=== PATIENT | female | born 1960 | race Caucasian/White ===

== ENCOUNTER 2020-09-07 12:06 | Inpatient (IN) | payer BC ==
[2020-09-07] MEDS ORDERED: SODIUM CHLORIDE 0.9% 1000 ML INFUS.BAG IV ONE (12:27)
[2020-09-07] MEDS ORDERED: ACETAMINOPHEN 1000 MG/100 ML VIAL (NON FORMULARY) IVPB ONE (13:00)
[2020-09-07] MEDS ORDERED: ACETAMINOPHEN INJECTION 100 ML IVPB ONE (13:06)
[2020-09-07 13:18] LABS: BILIRUBIN,TOTAL 0.8 mg/dl (0.2-1); CALCIUM 7.7 mg/dl (8.5-10); CREATININE 0.6 mg/dl (0.55-1.3); MAGNESIUM 1.9 mg/dL (1.8-2.4); POTASSIUM 3.8 mmol/L (3.5-5.1); TOT PROT 6.6 g/dl (6.4-8.2)
[2020-09-07 13:38] LABS: BASO % 2.2 % (0-2.0); EOS % 1.4 % (0-4.5); HEMATOCRIT 37.1 % (32.4-45.2); HEMOGLOBIN 12.3 GM/dl (10.7-15.3); LYMPH % 18.6 % (8-40); MCH 30.3 pg (25.7-33.7); MCHC 33.2 g/dl (32.0-36.0); MEAN CELL VOLUME 91.2 fl (80-96); MEAN PLT VOLUME 8.5 fl (7.5-11.1); MONO % 7.9 % (3.8-10.2); NEUT % 69.9 % (42.8-82.8); PLATELET COUNT 200 K/MM3 (134-434); RBC 4.07 M/mm3 (3.60-5.2); RDW 13.5 % (11.6-15.6); WHITE BLOOD COUNT 5.9 K/mm3 (4.0-10.8)
[2020-09-07] MEDS ORDERED: MAG HYDROX/AL HYDROX/SIMETH 30 ML UNIT-DOSE CUP PO ONE (13:42)
[2020-09-07] MEDS ORDERED: MAG HYDROX/AL HYDROX/SIMETH 30 ML UNIT-DOSE CUP ONE (13:47)
[2020-09-07 14:35] LABS: EPITHELIAL CELLS RARE /hpf
[2020-09-07] MEDS ORDERED: ASPIRIN 81 MG CHEWABLE TABLETS PO ONE (18:14)
[2020-09-07] MEDS ORDERED: ASPIRIN 81 MG CHEWABLE TABLETS ONE (18:22)
[2020-09-07] MEDS ORDERED: SODIUM CHLORIDE 1,000 ML IV SCH (21:45)
[2020-09-07] MEDS: ENOXAPARIN NA (PORCINE) 40 MG/0.4 ML DISP.SYRIN SQ SCH (22:22)
[2020-09-07 23:55] VITALS: BMI 22.6
[2020-09-08] MEDS ORDERED: LEVOTHYROXINE NA 150 MCG TABLET PO SCH (06:00)
[2020-09-08] MEDS ORDERED: LEVOTHYROXINE NA 88 MCG TABLET (FP) ONE (06:17)
[2020-09-08] MEDS ORDERED: LEVOTHYROXINE NA 100 MCG TABLET (FP) ONE (06:17)
[2020-09-08] MEDS: LEVOTHYROXINE 100 MCG, LEVOTHYROXINE 88 MCG PO SCH (06:36)
[2020-09-08 08:35] LABS: BASO % 2.1 % (0-2.0); EOS % 2.2 % (0-4.5); HEMATOCRIT 34.6 % (32.4-45.2); HEMOGLOBIN 11.5 GM/dl (10.7-15.3); LYMPH % 31.2 % (8-40); MCH 30.3 pg (25.7-33.7); MCHC 33.3 g/dl (32.0-36.0); MEAN CELL VOLUME 90.8 fl (80-96); MEAN PLT VOLUME 8.4 fl (7.5-11.1); MONO % 8.5 % (3.8-10.2); PLATELET COUNT 182 K/MM3 (134-434); RBC 3.81 M/mm3 (3.60-5.2); RDW 13.5 % (11.6-15.6); WHITE BLOOD COUNT 4.7 K/mm3 (4.0-10.8)
[2020-09-08 08:48] LABS: ALBUMIN 3.6 g/dl (3.4-5.0); BILIRUBIN,TOTAL 0.9 mg/dl (0.2-1); CALCIUM 6.6 mg/dl (8.5-10); CREATININE 0.7 mg/dl (0.55-1.3); POTASSIUM 3.5 mmol/L (3.5-5.1); TOT PROT 5.9 g/dl (6.4-8.2)
[2020-09-08] MEDS ORDERED: SODIUM CHLORIDE 500 ML IV STA (09:55)
[2020-09-08] MEDS ORDERED: CHOLECALCIFEROL (VIT D3) 400 UNIT (10 MCG) TABLET PO SCH (10:00)
[2020-09-08] MEDS ORDERED: CALCIUM (OYSTER SHELL) 500 MG TABLET (FP) PO SCH (10:00)
[2020-09-08] MEDS: ENOXAPARIN NA (PORCINE) 40 MG/0.4 ML DISP.SYRIN SQ SCH (11:38)
[2020-09-08] MEDS: SODIUM CHLORIDE 1,000 ML IV SCH (11:38)
[2020-09-08] MEDS ORDERED: POTASSIUM CHLORIDE TABS 20 MEQ TABLET.ER (FP) PO ONE (12:09)
[2020-09-08] MEDS: FAMOTIDINE 20 MG TABLET PO SCH (14:40)
[2020-09-08] MEDS: CALCIUM (OYSTER SHELL) 500 MG TABLET (FP) PO SCH (21:02)
[2020-09-09] MEDS ORDERED: LEVOTHYROXINE NA 100 MCG TABLET (FP) ONE (05:55)
[2020-09-09] MEDS ORDERED: LEVOTHYROXINE NA 88 MCG TABLET (FP) ONE (05:56)
[2020-09-09] MEDS: LEVOTHYROXINE 100 MCG, LEVOTHYROXINE 88 MCG PO SCH (06:03)
[2020-09-09] MEDS ORDERED: CHOLECALCIFEROL (VIT D3) 1,000 UNIT (25 MCG) TABLET PO SCH (07:52)
[2020-09-09 08:32] VITALS: BP 124/82; PULSE 71; TEMP 98
[2020-09-09] MEDS: ENOXAPARIN NA (PORCINE) 40 MG/0.4 ML DISP.SYRIN SQ SCH (09:21)
[2020-09-09] MEDS: SODIUM CHLORIDE 1,000 ML IV SCH (09:21)
[2020-09-09] MEDS: FAMOTIDINE 20 MG TABLET PO SCH (09:22)
[2020-09-09] MEDS: CALCIUM (OYSTER SHELL) 500 MG TABLET (FP) PO SCH (09:43)
[2020-09-09 12:21] LABS: POTASSIUM 4.1 mmol/L (3.5-5.1)
[2020-09-09 12:22] LABS: BLOOD UREA NITROGEN 6.8 mg/dL (7-18); CALCIUM 7.9 mg/dL (8.5-10.1); MAGNESIUM 1.9 mg/dL (1.8-2.4)
[2020-09-09 12:25] LABS: CREATININE 0.7 mg/dL (0.55-1.3)
== END 2020-09-09 13:48 | disposition home or self-care (01) | DRG 204 ==
LOC: FER 12:06 → FM/S 21:06
PROVIDERS: ADMIT Hospitalist; ATTEND Nurse Practitioner Acute Care
DX: I95.1 Orthostatic hypotension (principal); E83.51 Hypocalcemia; R07.9 Chest pain, unspecified; M06.9 Rheumatoid arthritis, unspecified; G43.909 Migraine, unspecified, not intractable, without status migrainosus; R07.89 Other chest pain; I49.3 Ventricular premature depolarization
CPT/HCPCS: 36415; 70450-TC; 71045-TC-FY; 80048; 80053; 81003; 81015; 82306; 82550; 83735; 84100; 84443; 84484; 85025; 93005; 99285-25; C9803; J0131; U0003